=== PATIENT | male | born 1955 | race Caucasian/White ===

== ENCOUNTER → 2021-01-04 10:28 | Outpatient (BNVA) | payer MEDICARE, SELFPAY | PROVIDERS: Visit Provider Surgery | DX: Z20.822 Contact with and (suspected) exposure to COVID-19 (principal); Z12.11 Encounter for screening for malignant neoplasm of colon | CPT/HCPCS: 87635 ==

== ENCOUNTER 2021-01-09 07:06 | Day surgery (SDC) | payer MEDICARE, SELFPAY ==
[2021-01-05 14:16] VITALS: BMI 35.6
[2021-01-09 07:23] VITALS: BP 151/89; PULSE 65; RESP 18; TEMP 36.1; O2SAT 97
[2021-01-09] MEDS: sodium chloride 0.9% 1,000 ML 15 ML IV (07:31)
[2021-01-09 07:39] LABS: Glucose Point of Care 99 mg/dL (70-110)
--- NOTE | 2021-01-09 07:50 | ANES.PREANE2 ---
Pre-Anesthetic Assessment Pre-Anesthetic Assessment: Height/Weight: Height 1.85 m Weight 122.47 kg Temp Pulse Resp BP Pulse Ox 97 F L 65 18 151/89 97 01/09/21 07:23 01/09/21 07:23 01/09/21 07:23 01/09/21 07:23 01/09/21 07:23 Preop Diagnosis: screening colonoscopy Proposed Procedure: Operation Date: 01/09/21 08:00 Proposed Procedures p Colonoscopy 69421 Z12.11(Not Applicable) - Jay Unger MD Was Beta Kym taken within 24 hours: Yes Was Clonidine taken within 24 hours: N/A Last intake: Intake Last Liquid Date 01/08/21 Last Liquid Time 21:00 Last Solid Date 01/08/21 Last Solid Time 21:00 Social: Social History: No alcohol and No tobacco Exam: Pre-Anes Outpt Exam: alert, oriented x 3, clear to auscultation bilaterally and regular rate & rhythm Airway: Submandibular: WNL Cervical ROM: WNL MP: 2 Dentition: Full Pulmonary: Pulmonary: Sleep apnea CV/HEM: CV/HEM: Afib, CAD and HTN : : Chronic renal failure Comments: Renal Tx Metabolic: Comments: Chronic steroids Anesthetic Plan: ASA status: 3 Anesthesia: MAC Risk of > 500 ml blood loss (7ml/kg in children): No Meds/Allergies Current Medications: Current Medications Generic Name Dose Route Start Last Admin Trade Name Freq PRN Reason Stop Dose Admin Sodium Chloride 1,000 mls @ 30 ml s/hr 01/09/21 07:15 01/09/21 07:31 Sodium Chloride 0.9% IV 01/10/21 07:14 15 mls/hr .Q24H MARITZA Administration PFSH Anesthesia PFSH: Medical History A-fib Diabetes GERD (gastroesophageal reflux disease) History of cardioversion Hyperlipidemia Hypertension Polycystic kidney disease Surgical History AV fistula History of colonoscopy (~2008) History of kidney transplant History of tonsillectomy and adenoidectomy History of umbilical hernia repair 1999 Peritoneal dialysis catheter in situ Removal for peritonitis S/P hemodialysis catheter insertion Family History Other Cancer Diabetes Hypertension Denies family history of Stroke Social History Smoking and tobacco status: never smoked Alcohol intake: never Lives independently: Yes Data Anesthesia Other Labs: Laboratory Results - last 48 hr 01/09/21 07:31 POC Glucose 99 Cardiac Studies: No Data to Display
--- NOTE | 2021-01-09 08:25 | W.PM.OPSUD ---
Surgery/Procedure H&P Update DATE OF PROCEDURE: January 09, 2021 DATE H&P PERFORMED: 12/25/20 H&P UPDATE INFORMATION: I have reviewed H&P completed within last 30 days, I have examined patient prior to procedure and No changes to prior documentation PREOP DIAGNOSIS: screening colonoscopy PLANNED PROCEDURE: Operation Date: 01/09/21 08:00 Proposed Procedures p Colonoscopy 17833 Z12.11(Not Applicable) - Jay Unger MD
[2021-01-09 08:57] VITALS: BP 154/69; PULSE 75; RESP 16; TEMP 36.1; O2SAT 94
[2021-01-09 09:13] VITALS: BP 164/77; PULSE 66; RESP 18; O2SAT 96
--- NOTE | 2021-01-09 10:14 | ANE.PACU2 ---
Inpatient post-anesthesia follow up: Airway intact: Yes Vital signs: Temperature 97 F Pulse Rate 66 Respiratory Rate 18 Blood Pressure 164/77 Pulse Oximetry 96 Oxygen Delivery Me thod Room Air Oxygen Flow Rate Fraction of Inspir ed Oxygen Hydration adequate: Yes Nausea and vomiting: No Mental status: Baseline
== END 2021-01-09 09:33 | disposition home or self-care (01) ==
PROVIDERS: Visit Provider Surgery
PROC: 0DJD8ZZ Inspection of Lower Intestinal Tract, Via Natural or Artificial Opening Endoscopic (ICD-10-PCS; CPT 45378; principal; 2021-01-09 08:00)
DX: Z12.11 Encounter for screening for malignant neoplasm of colon (principal); K57.30 Diverticulosis of large intestine without perforation or abscess without bleeding; K64.8 Other hemorrhoids; G47.30 Sleep apnea, unspecified; I48.91 Unspecified atrial fibrillation; I25.10 Atherosclerotic heart disease of native coronary artery without angina pectoris; I10 Essential (primary) hypertension; Z79.52 Long term (current) use of systemic steroids; E11.9 Type 2 diabetes mellitus without complications; E78.5 Hyperlipidemia, unspecified; Z79.82 Long term (current) use of aspirin
CPT/HCPCS: 36416; 82962; 96360; 96361; G0121; J2704; J7030

== ENCOUNTER → 2023-05-05 14:08 | Outpatient (BNVA) | payer MEDICARE, SELFPAY | PROVIDERS: Visit Provider Dermatology | DX: D84.9 Immunodeficiency, unspecified (principal); L81.4 Other melanin hyperpigmentation; L72.0 Epidermal cyst; L82.1 Other seborrheic keratosis; D23.61 Other benign neoplasm of skin of right upper limb, including shoulder; D48.5 Neoplasm of uncertain behavior of skin | CPT/HCPCS: 11102; 11103; 99203 ==

== ENCOUNTER → 2023-08-20 13:32 | Outpatient (BNVA) | payer MEDICARE, SELFPAY | PROVIDERS: PCP Family Medicine; Visit Provider Dermatology | DX: L81.4 Other melanin hyperpigmentation (principal); L82.1 Other seborrheic keratosis; D18.01 Hemangioma of skin and subcutaneous tissue; L57.0 Actinic keratosis; Z08 Encounter for follow-up examination after completed treatment for malignant neoplasm; Z85.828 Personal history of other malignant neoplasm of skin | CPT/HCPCS: 17000; 99213 ==

== ENCOUNTER → 2024-05-14 10:22 | Outpatient (BNVA) | payer MEDICARE, SELFPAY | PROVIDERS: PCP Family Medicine; Visit Provider Nurse Practitioner Family | DX: L82.0 Inflamed seborrheic keratosis (principal); L57.0 Actinic keratosis; L81.4 Other melanin hyperpigmentation; L82.1 Other seborrheic keratosis; D18.01 Hemangioma of skin and subcutaneous tissue; L57.8 Other skin changes due to chronic exposure to nonionizing radiation; Z85.828 Personal history of other malignant neoplasm of skin | CPT/HCPCS: 17000; 17110; 99213 ==

== ENCOUNTER → 2025-05-12 11:29 | Outpatient (BNVA) | payer MEDICARE, SELFPAY | PROVIDERS: PCP Family Medicine; Visit Provider Nurse Practitioner Family | DX: L57.8 Other skin changes due to chronic exposure to nonionizing radiation (principal); L81.4 Other melanin hyperpigmentation; D22.39 Melanocytic nevi of other parts of face; L82.1 Other seborrheic keratosis; L82.0 Inflamed seborrheic keratosis; R20.8 Other disturbances of skin sensation; Z78.9 Other specified health status; R58 Hemorrhage, not elsewhere classified; L53.8 Other specified erythematous conditions; L29.89 Other pruritus; L57.0 Actinic keratosis | CPT/HCPCS: 17000; 17110; 99213 ==

== ENCOUNTER → 2025-07-13 09:42 | Outpatient (BNVA) | payer MEDICARE, SELFPAY | PROVIDERS: PCP Family Medicine; Visit Provider Podiatrist Foot & Ankle Surgery | DX: E11.42 Type 2 diabetes mellitus with diabetic polyneuropathy (principal); L60.3 Nail dystrophy; G62.9 Polyneuropathy, unspecified; E11.8 Type 2 diabetes mellitus with unspecified complications; Z79.4 Long term (current) use of insulin | CPT/HCPCS: 11721; 99203 ==